=== PATIENT | male | born 1960 | race African-American/Black ===

== ENCOUNTER 2025-07-25 13:29 | Emergency (ER) | payer MEDICARE ==
[~2025-07-25] VITALS: Ht 177.8 cm; Wt 74.8 kg
[2025-07-25 15:07] LABS: BASO # 0.0 10*3/uL (0.0-0.1); BASO % 0.8 % (0.0-1.0); EOS # 0.2 10*3/uL (0.0-0.4); EOS % 4.2 % (1.0-4.0); MEAN CELL VOLUME 91.3 fl (80.0-94.0); MEAN CORPUSCULAR HGB 29.6 pg (27.0-31.0); MEAN PLATELET VOLUME 10.0 fl (9.6-12.3); MONO # 0.3 10*3/uL (0.1-1.0); MONO % 8.1 % (3.0-9.0); NEUT # 1.6 10*3/uL (2.3-7.9); NEUT % 44.5 % (47.0-73.0); NUCLEATED RED BLOOD CELL 0.0 % (0.0-0.0); NUCLEATED RED BLOOD CELL 0.0 10*3/uL (0.0-0.0); PLATELET COUNT AUTOMATED 168 10*3/uL (130-400); RED CELL DISTRI WIDTH 12.5 % (0-14.5)
[2025-07-25 15:25] LABS: BUN 20 mg/dl (9-23)
[2025-07-25] MEDS ORDERED: ANTIVERT25 M2 PO (17:46)
== END 2025-07-25 18:03 | disposition home or self-care (01) ==
LOC: ED 13:29
PROVIDERS: Emergency Medicine
DX: R42 Dizziness and giddiness (principal)